=== PATIENT | male | born 1995 | race Hispanic/Latino ===

== ENCOUNTER → 2017-02-18 | Outpatient (CLI) | payer OTHER ==
[~2017-02-18] MED LIST: BACT800T5 PO; TRAM50TA2 PO
[2017-02-18 14:06] LABS: MEAN CORPUSCULAR HEMOGLOBIN 30.4 pg (27.0-33.0); MEAN CORPUSCULAR HGB CONC 33.7 g/dl (32.0-36.5); MEAN CORPUSCULAR VOLUME 90.3 fl (80.0-96.0); RED CELL DISTRIBUTION WIDTH 12.5 % (11.5-14.5)
[2017-02-18 14:14] LABS: ANION GAP 6 MEQ/L (8-16); BLOOD UREA NITROGEN 15 MG/DL (7-18); CALCIUM LEVEL 9.7 MG/DL (8.5-10.1); CARBON DIOXIDE LEVEL 32 MEQ/L (21-32); CHLORIDE LEVEL 103 MEQ/L (98-107); CREATININE FOR GFR 1.02 MG/DL (0.70-1.30); GLUCOSE, FASTING 92 MG/DL (70-105); POTASSIUM SERUM 4.9 MEQ/L (3.5-5.1); SODIUM LEVEL 141 MEQ/L (136-145)
[2017-02-18 14:28] LABS: INR 1.14
== END ==
LOC: M SMT 10:16
PROVIDERS: ATTEND Nurse Practitioner Women's Health
DX: Z01.818 Encounter for other preprocedural examination (principal); N48.1 Balanitis
CPT/HCPCS: 36415; 80048; 85027; 85610; 85730; G0463

== ENCOUNTER → 2017-03-05 | Day surgery (SDC) | payer OTHER ==
[~2017-03-05] VITALS: Ht 188 cm; Wt 88.5 kg
[~2017-03-05] MED LIST changes: +BACITRACIN OINT 30GM As Ordered ONE; +BACTRIM 160MG/800MG DS TAB PO SCH; +BUPIVACAINE HCL 0.25% 30 ML VIAL As Ordered ONE; +KETOROLAC 60 MG/2 ML VIAL (J1885) As Ordered ONE; +LIDOCAINE 1% SDV INJ 30 ML VIAL As Ordered ONE; +LIDOCAINE 2% INJ 100 MG/5 ML SDV (FOR ANES.) As Ordered ONE; +LR 1,000 ML IV ONE; +LR 1,000 ML IV SCH; +MIDAZOLAM INJ 2 MG/2 ML VIAL (J2250) As Ordered ONE; +ONDANSETRON 4MG/2ML VIAL (J2405) As Ordered ONE; +ONDANSETRON 4MG/2ML VIAL (J2405) IV PRN; +PERCOCET 5MG/325MG TAB PO PRN; +PROPOFOL 200 MG/20 ML VIAL As Ordered ONE; +dexameTHASONE 4 MG/ML 1ML VIAL (J1100) As Ordered ONE; +fentaNYL 100 MCG/2 ML INJECTION (J3010) IV PRN; +fentaNYL 250 MCG/5 ML INJECTION (J3010) As Ordered ONE; +traMADol 50 MG TAB PO PRN
[2017-03-05 18:17] VITALS: BP 140/83
--- NOTE | 2017-03-06 11:10 | RO ---
DATE OF PROCEDURE: 03/05/2017 PREPROCEDURE DIAGNOSIS: Phimosis. POSTPROCEDURE DIAGNOSIS: Phimosis. SURGERY: Circumcision. SURGEON: Maciej Jack MD SENIOR CHEMICAL ENGINEER: None. ANESTHESIA: General. COMPLICATIONS: None. ESTIMATED BLOOD LOSS: N/A. HISTORY OF PRESENT ILLNESS: This is a patient with a history of phimosis. For this reason, he has consented for a circumcision. DESCRIPTION OF PROCEDURE: With the patient in supine position under general anesthesia, after prepping and draping the area of concern, which included the entire genitalia and abdomen, we started by placing a penile block with lidocaine 1% and Marcaine 0.25% total of 10 mL around the base of the penis. We then proceeded to do an incision in the mucosal area of the foreskin 1 cm away from the sulcus of the glans, circumferential incision. We then proceeded to do another circumferential incision of the foreskin about 4 cm toward the base of the penis. We excised the piece of skin between both incisions and fulgurated the bleeding vessels with electro Bovie cautery. Once hemostasis was controlled, we approximated both edges of skin with #3-0 chromic in separate stitches. We then placed Bacitracin cream and a Kerlix roll around the wound and also a Coban. The foreskin will be sent for permanent pathology analysis. PLAN: The patient will go home today with antibiotic, which will be Bactrim double strength one tablet by mouth twice a day. He will also have tramadol for pain. He will followup at [facility] [place] in 3 days.
== END | disposition home or self-care (01) ==
LOC: M SDC 13:47
PROVIDERS: ATTEND Urology
DX: N47.1 Phimosis (principal); N48.1 Balanitis; N48.89 Other specified disorders of penis; Z72.0 Tobacco use
CPT/HCPCS: 54161; 88304; J0690; J1100; J1885; J2250; J2405; J3010